=== PATIENT | female | born 1980 | race Caucasian/White ===

== ENCOUNTER 2024-11-30 12:32 | Emergency (ER) | payer MEDICAID, SELFPAY ==
[2024-11-30 12:37] VITALS: BP 131/71; PULSE 108; RESP 20; TEMP 36.2; O2SAT 97; BMI 31.6
[2024-11-30 12:46] VITALS: BP 138/85; PULSE 99; RESP 18; O2SAT 98
[2024-11-30 12:49] LABS: Coronavirus 19, PCR Not Detected (NotDetected); Influenza A, PCR Not Detected (NotDetected); Influenza B, PCR Not Detected (NotDetected)
[2024-11-30 12:52] VITALS: O2SAT 96
--- NOTE | 2024-11-30 12:52 | HMH.EDGENADL ---
Discharge Plan Disposition Patient Disposition: Home, Self-Care Prescriptions Prescriptions: New ipratropium-albuterol 0.5 mg-3 mg(2.5 mg base)/3 mL solution for nebulization 3 ml inhalation Q8H PRN (Reason: wheezing) Qty: 180 0RF Referrals Follow up/Referrals: Provider,Referral, [Primary Care Provider, Medical] - See instructions Activity Restrictions/Add. Instructions Additional Instructions/Restrictions: Use the albuterol inhaler provided to as instructed. I have also sent in a prescription for ipratropium and albuterol nebulizer solution to the [facility] pharmacy. You are being provided a list of primary care doctors. I encourage you to call them to schedule an appointment to get established with a primary care physician. If you develop any new or worsening symptoms, or if you become concerned for your health for any reason, return to the emergency department for evaluation. You can follow-up the results of your respiratory swab online Clinical Impressions Clinical Impression: Asthma with exacerbation Print Language Print Language: Greek Discharge ED Provider: Imer Field Adult HPI General Chief complaint: Shortness of Breath/Dyspnea Stated complaint: SOA Time Seen by Provider: 11/30/24 12:49 Mode of Arrival: Ambulatory Source of Information: Patient Description of Symptoms (Recalled from ER Triage Doc. by RN): patient presents to the ED with shortness of air. patient has a history of asthma and ran out of her albulterol inhaler and ipratroprium neb treatments this morning. she is a new resident of [place], has no PCP and believes her sisters cats are casuing this issue. she states her asthma attacks are not this frequent normally. History of Present Illness HPI narrative: Kayleigh Smith is a 44y female with a history of asthma, right upper extremity surgery, common bile duct stent who presents to the emergency department for complaints of medication refill and shortness of breath. Patient states that she has a history of asthma and recently moved to [place]. Since then, she states that her asthma symptoms have gotten worse, especially over this past weekend. She states that she has had increased frequency of using her ipratropium and albuterol nebulizer as well as her albuterol inhaler. She states that she has now ran out of both of these medications. She states that she has not significantly short of breath right now, however later in the day, she will likely be short of breath. The person that she lives with has 2 cats and she is allergic to cats. She does report a dry cough as well. She is not having chest pain with this. Related Data Previous Rx's ?Medication ?Instructions ?Recorded ipratropium 0.5 mg-albuterol 3 mg 3 ml inhalation Q8H PRN wheezing 11/30/24 (2.5 mg base)/3 mL nebulization #180 mL soln Allergies Allergy/AdvReac Type Severity Reaction Status Date / Time gabapentin AdvReac Hallucinati Verified 11/30/24 12:42 [facility] Disclaimer: The information contained in this section may have been updated after the patient was seen, as this information can be updated by other users. Social History Smoking Status: Light tobacco smoker alcohol intake: never current occupational status: employed Travel in the last 8 weeks?: None ROS Obtained: Yes Systems reviewed as appropriate & no additional complaints except as documented Physical Exam General General appearance: alert and in no apparent distress Head Head exam: atraumatic Eye Eye exam: Present normal appearance ENT ENT exam: Present normal external ear exam Neck Neck exam: Present full ROM Chest Chest inspection: Present symmetric chest wall rise Respiratory Respiratory exam: Present wheezes (Mild end expiratory wheezing); Absent normal lung sounds bilaterally, respiratory distress or stridor Cardiovascular Cardiovascular exam: Present regular rate and normal rhythm Abdominal Exam Abdominal exam: Present soft; Absent tenderness or guarding Extremities Exam Extremities exam: Present normal inspection Back Exam Back exam: Present normal inspection Neurological Exam Neurological exam: Present alert and oriented X3 Psychiatric Psychiatric exam: Present normal affect Skin Skin exam: Present warm and dry Medical Decision Making Medical Records Screening: Per USPSTF and CDC recommendations, given the prevalence of disease in our region, it is our hospital?s policy to screen for HIV and viral Hepatitis for all patients aged 18 and over and those with ongoing risk factors. Vasiliy Inquiry Pt receiving controlled substance: No Vital Signs: 11/30/24 12:37 11/30/24 12:52 Temperature 97.2 F L Temperature Source Oral Pulse Rate [Right Radial] 108 H Respiratory Rate 20 Blood Pressure [Right Arm] 131/71 Blood Pressure Mean [Right Arm] 91 Blood Pressure Source [Right Arm] Automatic Cuff Blood Pressure Position [Right Arm] Sitting 02 Sat by Pulse Oximetry 97 96 Oxygen Delivery Method Room Air Room Air Orders (Tests/Meds): ED MEDICATIONS Generic Name Dose Route Start Last Admin Trade Name Freq PRN Reason Stop Dose Admin Albuterol Sulfate 2 puff 11/30/24 13:01 11/30/24 13:13 Albuterol-Hfa 90mcg/Puff Inhaler 8gm IH 12/30/24 13:00 2 puff Q4HP PRN Administration Shortness Of Breath Dexamethasone 10 mg 11/30/24 13:19 Dexamethasone 4mg Tablet PO 11/30/24 13:20 ONCE ONE Discontinued Medications Generic Name Dose Route Start Last Admin Trade Name Freq PRN Reason Stop Dose Admin Miscellaneous 1 unit 11/30/24 13:01 11/30/24 13:13 Aerochamber/Optihaler MC 11/30/24 13:02 1 unit ONCE ONE Administration ORDERS Category Date Time Status CXR --portable [XR chest portable] Stat Exams 11/30/24 13:01 Taken Rapid PCR Covid and Flu A/B Stat Lab 11/30/24 12:42 Received Medical Decision Narrative: Kayleigh Smith is a 44y female with a history of asthma, right upper extremity surgery, common bile duct stent who presents to the emergency department for complaints of medication refill and shortness of breath. Patient states that she has a history of asthma and recently moved to [place]. Since then, she states that her asthma symptoms have gotten worse, especially over this past weekend. She states that she has had increased frequency of using her ipratropium and albuterol nebulizer as well as her albuterol inhaler. She states that she has now ran out of both of these medications. She states that she has not significantly short of breath right now, however later in the day, she will likely be short of breath. The person that she lives with has 2 cats and she is allergic to cats. She does report a dry cough as well. She is not having chest pain with this. On arrival, patient is normotensive, at time my evaluation, heart rate in the 80s. Afebrile. Oxygen saturation 96% SpO2. Physical exam, stated above, revealed an overall well-appearing female in no distress. She speaking full sentences. She has no murmurs or rubs. She has some mild wheezing bilaterally. Physical exam is otherwise unremarkable. Will obtain chest x-ray to rule out pneumonia. Rapid COVID/flu testing and EKG were obtained upon arrival. EKG showed normal sinus rhythm. No ST elevation or depression. No other significant abnormalities with normal QTc of 407. This felt that patient's symptomatology is most consistent with her asthma and no additional workup is indicated at this time. There is low concern for cardiac etiology. Chest x-ray interpreted by me personally. No focal consolidation, no pneumothorax, no widened mediastinum, no enlargement of the cardiac silhouette. Unremarkable chest x-ray. See radiology report for details. Patient was provided an albuterol inhaler during her ED visit. She was also given 10 mg of oral dexamethasone for mild asthma exacerbation. Patient will be sent prescription for ipratropium albuterol nebulizer solution to [facility] pharmacy. Patient does state that she also does not have a primary care provider and came to the emergency department to help get established with a primary care physician. Will provide her a list with primary care providers. Return precautions given. All questions were answered. She demonstrated understanding and was in agreement this plan. She was then discharged from the emergency department in stable condition. Critical Care Critical Care Time Critical Care Time: No
--- NOTE | 2024-11-30 12:53 | ECG_ITS ---
APPROVED REPORT Exam: Resting ECG HR:86 bpm ECG Measurements Heart Rate 86 AXES VT 149 P 70 QRSd 101 QRS 5 QT 364 T 45 QTc 407 Conclusion SINUS RHYTHM INDETERMINATE AXIS LOW QRS VOLTAGE IN PRECORDIAL LEADS [QRS DEFLECTION < 1.0 mV IN CHEST LEADS] INCOMPLETE RIGHT BUNDLE BRANCH BLOCK [90+ ms QRS DURATION, TERMINAL R IN V1/V2, 40+ ms S IN I/aVL/V4/V5/V6] SEPTAL MYOCARDIAL INFARCTION , PROBABLY OLD [40+ ms Q WAVE IN V1/V2] ABNORMAL ECG UNCONFIRMED REPORT Normal sinus rhythm. No ST elevation or depression. QTc 407 Electronically signed by : MARCELA MOBLEY, 12/01/2024 06:58:36
--- NOTE | 2024-11-30 13:01 | XR_ITS ---
FINAL REPORT TECHNIQUE: Single view chest CLINICAL HISTORY: shortness of breath FINDINGS: A single view of the chest was obtained. The heart and mediastinum are within normal limits. The lungs are clear. There is no pneumothorax. IMPRESSION: No acute cardiopulmonary process. Reviewed, Interpreted and Dictated by Shakila Byrne MD Transcribed by Laura Guzmán Authenticated and [facility]
[2024-11-30] MEDS: ALBUTEROL-HFA 90MCG/PUFF INHALER 8GM 2 PUFF IH (13:13)
[2024-11-30] MEDS: AEROCHAMBER/OPTIHALER 1 UNIT MC (13:13)
[2024-11-30] MEDS: DEXAMETHASONE 4MG TABLET 10 MG PO (13:27)
[2024-11-30 13:34] VITALS: BP 156/96; PULSE 84; RESP 16; TEMP 36.3; O2SAT 98
== END 2024-11-30 13:42 | disposition home or self-care (01) ==
PROVIDERS: Emergency Provider Student in an Organized Health Care Education/Training Program
DX: J45.901 Unspecified asthma with (acute) exacerbation (principal)
CPT/HCPCS: 71045; 87636; 93005; 99284; J8540

== ENCOUNTER 2024-12-24 09:10 | Outpatient (CLI) | payer MEDICAID, SELFPAY ==
--- OUTSIDE RECORDS SUMMARY | 2024-12-24 09:13 | XMS_ITS | Clinical Summary ---
Author Organization [facility] Address [address] [id number] Care Team Providers Care Hoop Maker Helper Machine Name Role Phone Unavailable Primary Care Provider Unavailabl e Social History Tobacco Use Types Packs/Day Years Used Date Smoking Tobacco: Every Day Comments Unknown Sex and Gender Information Value Date Recorded Sex Assigned at Not on file Legal Sex Female 8:04 PM EDT Gender Identity Not on file Sexual Orientation Not on file Last Filed Vital Signs Vital Sign Reading Time Taken Comments Blood Pressure 116/71 06/11/2017 1:42 PM EDT Pulse 81 06/11/2017 1:42 PM EDT Temperature 36.8 C (98.2 F) 06/11/2017 1:42 PM EDT Respiratory Rate - - Oxygen Saturation - - Inhaled Oxygen Concentration - - Weight 77.1 kg (170 lb) 06/11/2017 1:42 PM EDT Height 165.1 cm (5' 5 ) 06/11/2017 1:42 PM EDT Body Mass Index 28.29 06/11/2017 1:42 PM EDT Plan of Treatment Health Maintenance Due Date Last Done Comments [facility]-Depression Screening 1981 [facility]-/Child/Adol SDOH Screenings 1981 [facility]-Varicella Vaccines (1 of 2 - 13+ 2-dose series) 1994 [facility]- SDOH Screenings 07/28/1999 [facility]-Adult SDOH Screenings 07/28/1999 [facility]-DTaP,Tdap,and Td Vaccine s (1 - Tdap) 2000 [facility]-Hepatitis B Vaccines (1 of 3 - 19+ 3-dose series) 2000 [facility]-Pap Smear 2002 HPV Vaccines (1 - 3-dose SCD M series) 2008 [facility]-Cervical Cancer Screening 07/28/2011 [facility]-HPV/Cotest 07/28/2011 [id number] Vaccine (1 - 20 24-25 season) 2024 [facility]-Influenza Vaccine (#1) 2024 [facility]-Zoster Vaccines (1 of 2) 07/28/2031 [facility]-HIB Vaccines Aged Out No longer e ligible based on patient's age to complete this topic [facility]-Hepatitis A Vaccines Aged Out No longer eligible based on patient's age to complete this topic [facility]-IPV Vaccines Aged Out No longer e ligible based on patient's age to complete this topic [facility]-Pneumococcal Vaccine: Pediatrics (0 to 5 Years) and At-Risk Patients (6 to 49 Years) Aged Out No long er eligible based on patient's age to complete this topic [facility]-Rotavirus Vaccines Aged Out No lo nger eligible based on patient's age to complete this topic Insurance [employer]ICA[employer] [place]
--- NOTE | 2024-12-24 09:30 | CA_ITS ---
APPROVED REPORT EXAM: Comprehensive 2D, Doppler, and color-flow Echocardiogram Medical Insurance Coding Specialist: Rowan Hayes CRT Ht: 5 ft 5 in Wt: 191lbs BSA: 1.94 BP: 142/84 mmHg Indications: Shortness of Breath, Fatigue, asthma, mesocardia per pt 2D Dimensions LA Volume 29.20 mL LA Volume Index 14.70 mL/m2 (M/F) 16-34 M-Mode Dimensions RVDd 1.95 cm (0.9-2.6) LA Diam 2.93 cm (1.9-4.0) LVDd 4.40 cm (3.5-5.7) LVDs 2.82 cm (3.5-5.7) IVSd 1.16 cm (0.6-1.1) PWd 0.88 cm (0.6-1.1) EF (Teich) 65.70% FS 35.90% EDV (Teich) 87.70 mL TAPSE 2.35 (<1.7) ESV (Teich) 30.10 mL LV Diastology E Decel Time 163 (160-240 msec) E/A Ratio 1.09 MED A' 11.80 cm/s LAT A' 20.50 cm/s Aortic Valve AO Peak GR. 9.60 mmHg Mitral Valve MV E Max Mike. 85.0 (40-130 cm/s) MV A Velocity 78.0 (40-130 cm/s) E/A Ratio 1.09 MV PHT 48.0 ms Pulmonary Valve PV Peak Velocity 103.0 (50-150 cm/s) Tricuspid Valve TR P. Velocity 245.00 cm/s RAP Estimate 10.00 mmHg RVSP 34.10 mmHg Left Ventricle The left ventricle is normal size. Left ventricular systolic function is normal. The left ventricular ejection fraction is within the normal range. There is normal left ventricular wall thickness. There is normal LV segmental wall motion. The left ventricular diastolic function is normal. LVEF is 55% Right Ventricle The right ventricle is normal size. The right ventricular systolic function is normal. Atria The left atrium size is normal. The right atrium size is normal. There is no color Doppler evidence of interatrial shunt. Aortic Valve The aortic valve opens well. There is no hemodynamically significant aortic valvular stenosis. No aortic regurgitation is present. Mitral Valve The mitral valve is normal in structure. No evidence of mitral valve stenosis. Trace mitral regurgitation is present. Tricuspid Valve The tricuspid valve leaflets are thin and pliable. Mild tricuspid regurgitation. RVSP is 20-25 mmHg. Pulmonic Valve The pulmonary valve is grossly normal in structure. Trace pulmonic valve regurgitation is present. Great Vessels The aortic root is normal in size. IVC is normal in size and collapses >50% with inspiration. Pericardium There is no pericardial effusion. Other Information Study Quality: Fair Conclusion Normal biventricular systolic function. Mild TR. Electronically signed by : Arcelia Renae MD 12/25/2024 00:03:39
[2024-12-24 10:09] LABS: Hematocrit 46.1 % (37.0-47.0); Hemoglobin 15.4 g/dL (12.2-16.2); Immature Granulocytes % 0.3 %; Mean Corpuscular HGB Conc 33.4 g/dL (31.8-35.4); Mean Corpuscular Hemoglobin 30.9 pg (27.0-31.2); Mean Corpuscular Volume 92.4 fl (81-99); Nucleated Red Blood Cells % 0 %; Platelet Count 348 K/mm3 (142-424); Red Blood Count 4.99 M/mm3 (4.20-5.40); Red Cell Distribution Width-SD 43.7 fL; White Blood Count 12.0 K/mm3 (4.8-10.8)
[2024-12-24 10:29] LABS: D-Dimer 0.55 ug/mL (0.0-0.5)
[2024-12-24 11:25] LABS: Alanine Aminotransferase 18 U/L (12-78); Albumin Level 4.4 g/dl (3.5-5.0); Alkaline Phosphatase 75 U/L (38-126); Anion Gap 13.4 mEq/L (5-15); Aspartate Amino Transferase 21 U/L (14-36); Bilirubin,Direct 0.3 mg/dl (0.0-0.4); Bilirubin,Indirect 0.2 mg/dL (0.0-0.9); Bilirubin,Total 0.5 mg/dl (0.2-1.3); Bilirubin,Unconjugated 0.2 mg/dL (0.0-1.1); Blood Urea Nitrogen 6 mg/dl (7-17); Calcium 10.0 mg/dl (8.4-10.2); Carbon Dioxide 27 mmol/L (22.0-30.0); Chloride 104 mmol/L (98-107); Cholesterol 231 mg/dl (140-200); Creatinine,Serum 0.70 mg/dl (0.52-1.04); Estimated Glomerular Filt Rate 91 ml/min (>60); GFR (African American) 111 ML/MIN (>60); Glucose 80 mg/dl (74-100); HDL Cholesterol 67 mg/dl (40-60); Magnesium 2.0 mg/dl (1.6-2.3); Potassium 4.4 mmoL/L (3.5-5.1); Sodium 140 mmol/L (136-145); Total Protein,Serum 6.8 g/dl (6.3-8.2); Triglycerides 139 mg/dl (30-150)
[2024-12-24 11:41] LABS: Free T4 (Free Thyroxine) 1.28 ng/dl (0.78-2.19)
[2024-12-24 11:56] LABS: Thyroid Stimulating Hormone 1.48 uIU/mL (0.465-4.68)
[2024-12-24 12:02] LABS: Hemoglobin A1C 4.4 % (4.0-6.0)
== END 2024-12-24 23:59 | disposition home or self-care (01) ==
LOC: RT 09:10
PROVIDERS: Visit Provider Nurse Practitioner
DX: I07.1 Rheumatic tricuspid insufficiency (principal); Q24.8 Other specified congenital malformations of heart; J45.909 Unspecified asthma, uncomplicated; R00.0 Tachycardia, unspecified; R94.31 Abnormal electrocardiogram [ECG] [EKG]
CPT/HCPCS: 36415; 80048; 80061; 80076; 83036; 83735; 84439; 84443; 85025; 85378; 93306

== ENCOUNTER 2024-12-28 13:47 | Outpatient (CLI) | payer MEDICAID, SELFPAY ==
--- OUTSIDE RECORDS SUMMARY | 2024-12-28 13:50 | XMS_ITS | Clinical Summary ---
Author Organization [facility] Address [address] [id number] Care Team Providers Care Sausage Inspector Name Role Phone Unavailable Primary Care Provider [...] 2008 [facility]-Cervical Cancer Screening 07/28/2011 [facility]-HPV/Cotest 07/28/2011 [id number] Vaccine (1 - 20 24-25 season) 2024 [...]
--- NOTE | 2024-12-28 14:00 | CT_ITS ---
FINAL REPORT TECHNIQUE: Axial imaging of the chest is obtained after the administration of contrast. 3-D MIP reformatted images were also obtained and reviewed per PE protocol. CLINICAL HISTORY: elevated d-dimer FINDINGS: The pulmonary arteries are well filled. There is no evidence of pulmonary embolus. There is no aortic dissection. Heart size is normal. There is no mediastinal, hilar, or axillary lymphadenopathy. There are very early emphysematous changes at the lung apices. The lungs are clear. There is no pleural or pericardial effusion. Limited evaluation of the upper abdomen is without acute abnormality. No acute osseous abnormality. IMPRESSION: No evidence of pulmonary embolism or aortic dissection. Reviewed, Interpreted and Dictated by Shakila Byrne MD Transcribed by Laura Guzmán Authenticated and [facility]
[2024-12-28] MEDS: IOPAMIDOL-370 (76%);100ML BOTTLE 85 ML IV (14:18)
[2024-12-28] MEDS: 0.9 % SODIUM CHLORIDE 50 ML VIAL IV (14:18)
[2024-12-28] MEDS: SODIUM CHLORIDE 0.9% 10ML SYR (RAD ONLY) 10 ML IV (14:18)
== END 2024-12-28 23:59 | disposition home or self-care (01) ==
PROVIDERS: PCP Nurse Practitioner Family; Visit Provider Nurse Practitioner Family
DX: R00.0 Tachycardia, unspecified (principal); R94.31 Abnormal electrocardiogram [ECG] [EKG]; R53.83 Other fatigue; R06.02 Shortness of breath; R79.89 Other specified abnormal findings of blood chemistry
CPT/HCPCS: 71275; Q9967

== ENCOUNTER 2025-01-10 14:25 | Outpatient (CLI) | payer MEDICAID, SELFPAY ==
[2025-01-10 15:29] LABS: Iron 65 ug/dL (37-170)
[2025-01-10 15:40] LABS: Total Iron Binding Capacity 258 ug/dL (265-497)
[2025-01-10 16:03] LABS: Ferritin 31.8 ng/ml (6.24-137)
[2025-01-10 16:23] LABS: 25-OH Vitamin D, Total 53.0 ng/mL (30-100)
== END 2025-01-10 23:59 | disposition home or self-care (01) ==
LOC: LAB 14:26
PROVIDERS: PCP Nurse Practitioner Family; Visit Provider Physician Assistant
DX: R06.02 Shortness of breath (principal); R53.83 Other fatigue
CPT/HCPCS: 36415; 82306; 82728; 83540; 83550